=== PATIENT | female | born 1960 | race Caucasian/White ===

== ENCOUNTER → 2023-09-30 11:03 | Outpatient (REF) | payer OTHER, SELFPAY | LOC: WDC 11:03 | PROVIDERS: ATTENDING PHYSICIAN Obstetrics & Gynecology; FAMILY PHYSICIAN Family Medicine | DX: Z12.31 Encounter for screening mammogram for malignant neoplasm of breast (principal) | CPT/HCPCS: 77063; 77067 ==

== ENCOUNTER → 2023-10-07 10:04 | Outpatient (REF) | payer OTHER, SELFPAY | LOC: WDC 10:04 | PROVIDERS: ATTENDING PHYSICIAN Obstetrics & Gynecology; FAMILY PHYSICIAN Family Medicine | DX: R92.8 Other abnormal and inconclusive findings on diagnostic imaging of breast (principal) | CPT/HCPCS: 76642 ==

== ENCOUNTER → 2023-10-09 06:24 | Outpatient (REF) | payer OTHER, SELFPAY ==
--- NOTE | 2023-10-09 09:15 | OID.BR.INTR ---
[facility] Breast Navigator - Initial
- -
Date of Contact: 10/09/23
Met with patient. Patient given written information on navigator services available at [facility]. Will follow up as needed per protocol.
== END ==
LOC: WDC 06:24
PROVIDERS: ATTENDING PHYSICIAN Obstetrics & Gynecology
DX: N63.20 Unspecified lump in the left breast, unspecified quadrant (principal); N64.59 Other signs and symptoms in breast
CPT/HCPCS: 88305; 19081; 76098; A4648

== ENCOUNTER → 2023-11-20 07:45 | Outpatient (REF) | payer OTHER, SELFPAY ==
[2023-11-20 10:13] LABS: % Eosinophils 4.3 % (0-6); % Immature Granulocytes 0.4 % (0-0.5); % Lymphocytes 46.1 % (20.5-51.1); % Monocytes 10.7 % (1.7-9.3); % Neutrophils 37.5 % (42.2-75.2); Absolute Basophils 0.1 10^3/uL (0-0.2); Absolute Eosinophils 0.2 10^3/uL (0-0.7); Absolute Lymphocytes 2.4 10^3/uL (1.2-3.4); Absolute Monocytes 0.6 10^3/uL (0.1-0.6); Absolute Neutrophils 1.9 10^3/uL (1.4-6.5); Hematocrit 43.9 % (37.0-47.0); Hemoglobin 14.7 g/dL (12.0-16.0); Mean Corp Hgb Conc. 33.5 g/dL (33.0-37.0); Mean Corpuscular Hgb 29.1 pg (27.0-31.0); Mean Corpuscular Volume 86.9 fL (81.0-99.0); Mean Platelet Volume 9.8 fL (7.4-10.4); Nucleated Red Blood Cells % 0 %; Platelet Count 225 10^3/uL (130-400); Red Blood Cell Count 5.05 10^6/uL (4.20-5.40); Red Cell Dist. Width 12.8 % (11.5-14.5); White Blood Cell Count 5.1 10^3/uL (4.8-10.8)
[2023-11-20 10:40] LABS: ALT (SGPT) 18 U/L (0-35); AST (SGOT) 28 U/L (14-36); Albumin 4.6 g/dl (3.5-5.0); Alkaline Phosphatase 73 U/L (38-126); Blood Urea Nitrogen 19 mg/dl (7-17); Calcium 9.8 mg/dl (8.4-10.2); Carbon Dioxide 28 mmol/L (22-30); Chloride 102 mmol/L (98-107); Glucose 86 mg/dl (70-99); HDL Cholesterol 108 mg/dl; Iron 105 ug/dl (37-170); LDL Cholesterol, Calculated 102 mg/dl; Potassium 4.5 mmol/L (3.5-5.1); Sodium 137 mmol/L (135-145); Total Bilirubin 0.5 mg/dl (0.2-1.3); Total Cholesterol 231 mg/dl (50-199); Triglyceride 107 mg/dl (10-149); Very Low Density Lipoprotein 21 mg/dl (0-30); eGFR > 60.00
[2023-11-20 10:49] LABS: Percent Saturation 36 % (20-50); Total Iron Binding Capacity 288 ug/dl (265-497)
[2023-11-20 11:09] LABS: TSH Reflex To Free T4 2.72 uIU/ml (0.47-4.68)
[2023-11-20 11:13] LABS: Ferritin 71.3 ng/ml (11.1-264.0)
[2023-11-20 11:44] LABS: Folate 13.6 ng/ml (2.76-20); Vitamin B12 282 pg/ml (239-931)
== END ==
LOC: REG 07:45
PROVIDERS: ATTENDING PHYSICIAN Family Medicine
DX: R53.83 Other fatigue (principal); G47.30 Sleep apnea, unspecified; E78.00 Pure hypercholesterolemia, unspecified; F41.1 Generalized anxiety disorder; K57.90 Diverticulosis of intestine, part unspecified, without perforation or abscess without bleeding
CPT/HCPCS: 36415; 80053; 80061; 82607; 82728; 82746; 83540; 83550; 84443; 85025

== ENCOUNTER → 2023-12-29 12:59 | Outpatient (REF) | payer OTHER, SELFPAY | LOC: HWEVLT 12:59 | PROVIDERS: ATTENDING PHYSICIAN Radiology Vascular & Interventional Radiology | DX: I83.893 Varicose veins of bilateral lower extremities with other complications (principal) | CPT/HCPCS: 93970 ==

== ENCOUNTER → 2024-02-24 09:16 | Outpatient (REF) | payer OTHER, SELFPAY ==
[2024-02-24 12:45] LABS: Vitamin B12 799 pg/ml (239-931)
[2024-02-26 15:22] LABS: Gastric Parietal Cell Ab, IgG 3.5 Units (0.0-24.9)
[2024-02-26 19:27] LABS: Intrinsic Factor Blocking Ab Negative (Negative)
== END ==
LOC: REG 09:16
PROVIDERS: ATTENDING PHYSICIAN Internal Medicine; FAMILY PHYSICIAN Family Medicine; REFERRING PHYSICIAN Internal Medicine Rheumatology
DX: E53.8 Deficiency of other specified B group vitamins (principal)
CPT/HCPCS: 36415; 82607; 83516; 86340

== ENCOUNTER → 2024-04-05 09:48 | Outpatient (REF) | payer OTHER, SELFPAY | LOC: HWEVLT 09:48 | PROVIDERS: ATTENDING PHYSICIAN Radiology Vascular & Interventional Radiology | DX: I83.891 Varicose veins of right lower extremity with other complications (principal) | CPT/HCPCS: 36478; C1769 ==

== ENCOUNTER → 2024-04-06 16:41 | Outpatient (REF) | payer OTHER, SELFPAY ==
[2024-04-06 17:04] LABS: % Basophils 0.6 % (0-2); % Eosinophils 3.6 % (0-6); % Immature Granulocytes 0.3 % (0-0.5); % Lymphocytes 29.9 % (20.5-51.1); % Monocytes 9.6 % (1.7-9.3); Absolute Basophils 0.1 10^3/uL (0-0.2); Absolute Eosinophils 0.3 10^3/uL (0-0.7); Absolute Lymphocytes 2.3 10^3/uL (1.2-3.4); Absolute Monocytes 0.7 10^3/uL (0.1-0.6); Absolute Neutrophils 4.3 10^3/uL (1.4-6.5); Hematocrit 40.4 % (37.0-47.0); Hemoglobin 13.4 g/dL (12.0-16.0); Mean Corp Hgb Conc. 33.2 g/dL (33.0-37.0); Mean Corpuscular Hgb 28.6 pg (27.0-31.0); Mean Corpuscular Volume 86.3 fL (81.0-99.0); Mean Platelet Volume 9.3 fL (7.4-10.4); Nucleated Red Blood Cells % 0 %; Platelet Count 251 10^3/uL (130-400); Red Blood Cell Count 4.68 10^6/uL (4.20-5.40); Red Cell Dist. Width 13.5 % (11.5-14.5); White Blood Cell Count 7.7 10^3/uL (4.8-10.8)
[2024-04-06 17:17] LABS: INR 0.88; PT 12.5 Sec (11.4-14.6)
[2024-04-06 17:20] LABS: Blood Urea Nitrogen 19 mg/dl (7-17); Calcium 9.6 mg/dl (8.4-10.2); Carbon Dioxide 27 mmol/L (22-30); Chloride 101 mmol/L (98-107); Glucose 92 mg/dl (70-99); Potassium 4.2 mmol/L (3.5-5.1); Sodium 135 mmol/L (135-145); eGFR > 60.00
[2024-04-06 17:21] LABS: Amphetamines Negative (Negative); Barbiturates Negative (Negative); Benzodiazepines Negative (Negative); Buprenorphine Negative (Negative); Cocaine Negative (Negative); Marijuana Positive (Negative); Methadone Negative (Negative); Methamphetamines Negative (Negative); Opiates Negative (Negative); Phencyclidine Negative (Negative); Tricyclic Antidepressants Negative (Negative)
== END ==
LOC: WDC 16:41
PROVIDERS: ATTENDING PHYSICIAN Obstetrics & Gynecology; FAMILY PHYSICIAN Family Medicine; REFERRING PHYSICIAN Plastic Surgery
DX: Z01.812 Encounter for preprocedural laboratory examination (principal)
CPT/HCPCS: 36415; 80048; 80306; 85025; 85610; 85730

== ENCOUNTER → 2024-04-08 14:37 | Outpatient (REF) | payer OTHER, SELFPAY | LOC: WDC 14:37 | PROVIDERS: ATTENDING PHYSICIAN Obstetrics & Gynecology; FAMILY PHYSICIAN Family Medicine | DX: R92.8 Other abnormal and inconclusive findings on diagnostic imaging of breast (principal) | CPT/HCPCS: 77061; 77065 ==

== ENCOUNTER → 2024-04-26 10:51 | Outpatient (REF) | payer OTHER, SELFPAY | LOC: HWEVLT 10:51 | PROVIDERS: ATTENDING PHYSICIAN Radiology Vascular & Interventional Radiology | DX: I83.891 Varicose veins of right lower extremity with other complications (principal) | CPT/HCPCS: 93971 ==

== ENCOUNTER → 2024-06-23 08:12 | Outpatient (REF) | payer OTHER, SELFPAY ==
[2024-06-23 13:23] LABS: Mumps Virus IgG Positive; Rubeola (Measles) IgG Positive
[2024-06-23 21:19] LABS: Rubella Positive
== END ==
LOC: REG 08:12
PROVIDERS: ATTENDING PHYSICIAN Family Medicine
DX: Z01.84 Encounter for antibody response examination (principal)
CPT/HCPCS: 36415; 86735; 86762; 86765

== ENCOUNTER → 2024-11-17 08:03 | Outpatient (REF) | payer OTHER, SELFPAY ==
[2024-11-17 10:33] LABS: Iron 67 ug/dl (37-170)
[2024-11-17 10:42] LABS: Total Iron Binding Capacity 272 ug/dl (265-497)
[2024-11-17 11:30] LABS: C-Reactive Protein < 5.00 mg/L (0.0-10.00)
[2024-11-17 11:43] LABS: Vitamin D, 25-OH*** 31.3 ng/mL (30-80)
[2024-11-17 12:32] LABS: Folate > 20.0 ng/ml (2.76-20); Vitamin B12 601 pg/ml (239-931)
[2024-11-17 15:06] LABS: Lyme Antibody Screen, EIA Negative (Negative)
[2024-11-19 20:55] LABS: Vitamin B1, Whole Blood 128 nmol/L (70-180)
[2024-11-20 09:21] LABS: SSA 52 (Ro)(ENA) Ab, IgG 1 AU/mL (0-40); SSA 60 (Ro)(ENA) Ab, IgG 0 AU/mL (0-40); SSB (La)(ENA) Ab, IgG 0 AU/mL (0-40)
[2024-11-20 09:27] LABS: Gamma-Tocopherol 1.1 mg/L (0.0-6.0)
== END ==
LOC: REG 08:03
PROVIDERS: ATTENDING PHYSICIAN Psychiatry & Neurology Neurology; FAMILY PHYSICIAN Family Medicine
DX: I77.6 Arteritis, unspecified (principal)
CPT/HCPCS: 36415; 82164; 82306; 82607; 82746; 83540; 83550; 84425; 84443; 84446; 85652; 86140; 86235; 86255; 86618

== ENCOUNTER 2024-11-17 14:28 | Emergency (ER) | payer SELFPAY ==
[2024-11-17 14:30] VITALS: BP 126/88
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
== END 2024-11-17 17:34 | disposition home or self-care (01) ==
LOC: EMR 14:28
PROVIDERS: EMERGENCY PHYSICIAN Emergency Medicine
DX: G44.319 Acute post-traumatic headache, not intractable (principal)
CPT/HCPCS: 99284; 70450

== ENCOUNTER → 2024-12-15 11:37 | Outpatient (REF) | payer MEDICARE, SELFPAY | LOC: RAD 11:37 | PROVIDERS: ATTENDING PHYSICIAN Family Medicine | DX: M54.2 Cervicalgia (principal) | CPT/HCPCS: 72040 ==

== ENCOUNTER → 2025-01-16 08:41 | Outpatient (REF) | payer MEDICARE, SELFPAY ==
[2025-01-16 09:55] LABS: Hematocrit 43.5 % (37.0-47.0); Hemoglobin 14.3 g/dL (12.0-16.0); Mean Corp Hgb Conc. 32.9 g/dL (33.0-37.0); Mean Corpuscular Volume 85.0 fL (81.0-99.0); Nucleated Red Blood Cells % 0 %; Platelet Count 245 10^3/uL (130-400); Red Cell Dist. Width 13.2 % (11.5-14.5)
[2025-01-16 11:08] LABS: ALT (SGPT) 20 U/L (0-35); AST (SGOT) 23 U/L (14-36); Albumin 4.7 g/dl (3.5-5.0); Alkaline Phosphatase 73 U/L (38-126); Blood Urea Nitrogen 19 mg/dl (7-17); Calcium 9.6 mg/dl (8.4-10.2); Carbon Dioxide 28 mmol/L (22-30); Chloride 104 mmol/L (98-107); Glucose 83 mg/dl (70-99); HDL Cholesterol 109 mg/dl; LDL Cholesterol, Calculated 85 mg/dl; Potassium 4.5 mmol/L (3.5-5.1); Sodium 138 mmol/L (135-145); Total Protein 7.0 g/dl (6.3-8.2); Very Low Density Lipoprotein 23 mg/dl (0-30); eGFR > 60.00
== END ==
LOC: REG 08:41
PROVIDERS: ATTENDING PHYSICIAN Family Medicine
DX: E78.00 Pure hypercholesterolemia, unspecified (principal); L95.8 Other vasculitis limited to the skin; F41.1 Generalized anxiety disorder; J30.89 Other allergic rhinitis
CPT/HCPCS: 36415; 80053; 80061; 84443; 85025

== ENCOUNTER 2025-01-17 09:56 | Outpatient (RCR) | payer OTHER, MEDICARE, SELFPAY | END 2025-01-17 23:59 | disposition home or self-care (01) | LOC: RPT 09:56 | PROVIDERS: ATTENDING PHYSICIAN Nurse Practitioner Adult Health; FAMILY PHYSICIAN Family Medicine | DX: M72.2 Plantar fascial fibromatosis (principal); M54.2 Cervicalgia; Z73.6 Limitation of activities due to disability; R26.2 Difficulty in walking, not elsewhere classified; M62.81 Muscle weakness (generalized); M54.6 Pain in thoracic spine; M25.562 Pain in left knee; R26.89 Other abnormalities of gait and mobility; V89.2XXD Person injured in unspecified motor-vehicle accident, traffic, subsequent encounter; Z87.820 Personal history of traumatic brain injury | CPT/HCPCS: 97010; 97110; 97112; 97140; 97162 ==

== ENCOUNTER 2025-02-17 09:14 | Outpatient (RCR) | payer OTHER, MEDICARE, SELFPAY | END 2025-02-17 23:59 | disposition home or self-care (01) | LOC: RPT 09:14 | PROVIDERS: ATTENDING PHYSICIAN Nurse Practitioner Adult Health; FAMILY PHYSICIAN Family Medicine | DX: M72.2 Plantar fascial fibromatosis (principal); M54.2 Cervicalgia; Z73.6 Limitation of activities due to disability; R26.2 Difficulty in walking, not elsewhere classified; M62.81 Muscle weakness (generalized); M54.6 Pain in thoracic spine; M25.562 Pain in left knee; R26.89 Other abnormalities of gait and mobility; V89.2XXD Person injured in unspecified motor-vehicle accident, traffic, subsequent encounter; Z87.820 Personal history of traumatic brain injury | CPT/HCPCS: 97010; 97110; 97140 ==

== ENCOUNTER 2025-03-10 07:59 | Outpatient (RCR) | payer OTHER, MEDICARE, SELFPAY | END 2025-03-10 23:59 | disposition home or self-care (01) | LOC: RPT 07:59 | PROVIDERS: ATTENDING PHYSICIAN Nurse Practitioner Adult Health; FAMILY PHYSICIAN Family Medicine | DX: M72.2 Plantar fascial fibromatosis (principal); M54.2 Cervicalgia; Z73.6 Limitation of activities due to disability; R26.2 Difficulty in walking, not elsewhere classified; M62.81 Muscle weakness (generalized); M54.6 Pain in thoracic spine; M25.562 Pain in left knee; R26.89 Other abnormalities of gait and mobility; V89.2XXD Person injured in unspecified motor-vehicle accident, traffic, subsequent encounter; Z87.820 Personal history of traumatic brain injury | CPT/HCPCS: 97010; 97110; 97140 ==

== ENCOUNTER 2025-03-31 11:09 | Outpatient (RCR) | payer OTHER, MEDICARE, SELFPAY | END 2025-03-31 23:59 | disposition home or self-care (01) | LOC: RPT 11:09 | PROVIDERS: ATTENDING PHYSICIAN Nurse Practitioner Adult Health; FAMILY PHYSICIAN Family Medicine | DX: M72.2 Plantar fascial fibromatosis (principal); M54.2 Cervicalgia; Z73.6 Limitation of activities due to disability; R26.2 Difficulty in walking, not elsewhere classified; M62.81 Muscle weakness (generalized); M54.6 Pain in thoracic spine; M25.562 Pain in left knee; R26.89 Other abnormalities of gait and mobility; V89.2XXD Person injured in unspecified motor-vehicle accident, traffic, subsequent encounter; Z87.820 Personal history of traumatic brain injury | CPT/HCPCS: 97010; 97110; 97112; 97140 ==